=== PATIENT | female | born 1960 | race Caucasian/White ===

== ENCOUNTER 2022-11-17 11:54 | Day surgery (SDC) | payer MEDICARE ==
[~2022-11-17] VITALS: Ht 167.6 cm; Wt 124.7 kg
[2022-11-17] MEDS ORDERED: OZEMPIC1 MG/0.72 SC (12:50)
[2022-11-17] MEDS ORDERED: METO25ER PO (12:51)
[2022-11-17] MEDS ORDERED: EZET10 PO (12:51)
[2022-11-17] MEDS ORDERED: FENO48 PO (12:52)
[2022-11-17] MEDS ORDERED: MONT10T PO (12:53)
[2022-11-17] MEDS ORDERED: PREG100 PO (12:58)
[2022-11-17] MEDS ORDERED: DULO30 PO (12:59)
--- NOTE | 2022-11-17 14:18 | NUR ---
11/17/22 1418 Alexandra Mattson BARRY WAS INSERTED AT 1350 AND REMOVED AT 1412 WITH 50 CC YELLOW URINE IN BARRY BAG
--- NOTE | 2022-11-17 14:32 | NUR ---
11/17/22 1432 FLETCHER FUENTES PT QUESTIONS GETTING TORADOL SHE STATES SHE HAS ANAPHLAX FOR IBUPROFEN. PT STATES THROAT SCRATCHY AND EYES ITCHY. "FELT WHEEZY". PT O2 LEVEL DROPPED TO 91% ON RA. STARTED 10L O2 VIA FACE TENT. CURRENTLY O2 SAT IS 100%. PT NOW COUGHING. PT CARMELO WAS NOTIFIED AND CAME TO SEE PT. WE DISCUSSED OUR CONCERN. HE TOLD THAT PT THAT THIS WOULD PASS AND SHE WILL BE OKAY. HE DID NOT WANT TO GIVE BENEDRYL NOR AN UPDRAFT. PT HAD REQUESTED SOLUMEDROL.
--- NOTE | 2022-11-17 15:11 | NUR ---
11/17/22 1511 FLETCHER FUENTES PT STATES PAIN IN LOWER ABD AND THROAT ARE BOTH 8/10. PT IN RECLINER. PT STATES THAT SHE STILL FEELS SOB. SHE STATES SHE WILL JUST GO HOME AND USE HER CPAP.
[2022-11-17 15:18] VITALS: BP 142/83
== END 2022-11-17 15:32 | disposition home or self-care (01) ==
LOC: ORSCSDS 11:54
PROVIDERS: Obstetrics & Gynecology
PROC: 0UDB8ZX Extraction of Endometrium, Via Natural or Artificial Opening Endoscopic, Diagnostic (ICD-10-PCS; principal; 2022-11-17 13:15)
DX: N95.0 Postmenopausal bleeding (principal); N84.0 Polyp of corpus uteri; E11.9 Type 2 diabetes mellitus without complications; E66.01 Morbid (severe) obesity due to excess calories; Z68.41 Body mass index [BMI] 40.0-44.9, adult; G47.33 Obstructive sleep apnea (adult) (pediatric); Z79.899 Other long term (current) drug therapy
CPT/HCPCS: 82947; 88305; J0690; J1100; J1885; J2250; J2405; J2704; J3010

== ENCOUNTER → 2023-03-18 | Outpatient (CLI) | payer MEDICARE ==
[~2023-03-18] MED LIST: DULO30 PO; EZET10 PO; FENO48 PO; METO25ER PO; MONT10T PO; OZEMPIC1 MG/0.72 SC; PREG100 PO
[2023-03-18 10:40] LABS: BASOPHILS ABSOLUTE AUTO 0.05 K/mm3 (0.00-0.23); BASOPHILS PERCENT AUTO 1 % (0-2); EOSINOPHILS ABSOLUTE AUTO 0.32 K/mm3 (0.00-0.68); EOSINOPHILS PERCENT AUTO 4 % (0-6); Hematocrit 47.1 % (33.0-51.0); Hemoglobin 15.2 g/dL (11.5-16.0); IMMATURE GRAN ABSOLUTE AUTO 0.03 K/mm3 (0.00-0.10); IMMATURE GRAN PERCENT AUTO 0 % (0-1); LYMPHOCYTES ABSOLUTE AUTO 2.46 K/mm3 (0.84-5.20); LYMPHOCYTES PERCENT AUTO 27 % (21-46); MONOCYTES ABSOLUTE AUTO 0.63 K/mm3 (0.16-1.47); MONOCYTES PERCENT AUTO 7 % (4-13); Mean Corpuscular HGB 28.5 pg (26.0-34.0); Mean Corpuscular HGB Conc 32.3 g/dL (31.5-36.5); Mean Corpuscular Volume 88 fL (80-100); Mean Platelet Volume 9.1 fL (9.1-12.4); NEUTROPHILS ABSOLUTE AUTO 5.51 K/mm3 (1.96-9.15); NEUTROPHILS PERCENT AUTO 61 % (41-73); Platelet Count 373 K/mm3 (150-400); RDW Standard Deviation 44.9 fL (35.1-46.3); Red Blood Cell Count 5.34 M/mm3 (3.80-5.20)
[2023-03-18 10:44] LABS: Albumin, Blood 3.5 g/dL (3.4-5.0); Bilirubin, Total 0.6 mg/dL (0.1-1.0); Bun/Creatinine Ratio 19.8 (12.0-20.0); Calcium, Blood 9.1 mg/dL (8.5-10.1); Creatinine, Blood 0.76 mg/dL (0.40-1.00); Globulin, Blood 3.5 g/dL (2.2-4.0); Potassium, Blood 3.7 mmol/L (3.5-5.5)
== END | disposition home or self-care (01) ==
LOC: LAB SHORT 09:06 → LAB 09:06
PROVIDERS: Nurse Practitioner Family
DX: E11.42 Type 2 diabetes mellitus with diabetic polyneuropathy (principal); I10 Essential (primary) hypertension
CPT/HCPCS: 80053; 83036; 85025

== ENCOUNTER → 2023-12-29 | Outpatient (CLI) | payer MEDICARE ==
[2023-12-29 11:22] LABS: BASOPHILS ABSOLUTE AUTO 0.08 K/mm3 (0.00-0.23); BASOPHILS PERCENT AUTO 1 % (0-2); EOSINOPHILS ABSOLUTE AUTO 0.48 K/mm3 (0.00-0.68); EOSINOPHILS PERCENT AUTO 6 % (0-6); Hematocrit 44.9 % (33.0-51.0); Hemoglobin 14.7 g/dL (11.5-16.0); IMMATURE GRAN ABSOLUTE AUTO 0.04 K/mm3 (0.00-0.10); IMMATURE GRAN PERCENT AUTO 1 % (0-1); LYMPHOCYTES PERCENT AUTO 26 % (21-46); MONOCYTES ABSOLUTE AUTO 0.53 K/mm3 (0.16-1.47); MONOCYTES PERCENT AUTO 7 % (4-13); Mean Corpuscular HGB 28.2 pg (26.0-34.0); Mean Corpuscular HGB Conc 32.7 g/dL (31.5-36.5); Mean Corpuscular Volume 86 fL (80-100); Mean Platelet Volume 9.2 fL (9.1-12.4); NEUTROPHILS ABSOLUTE AUTO 4.65 K/mm3 (1.96-9.15); NEUTROPHILS PERCENT AUTO 60 % (41-73); Platelet Count 379 K/mm3 (150-400); RDW Coefficient Variation 14.1 % (11.7-14.2); Red Blood Cell Count 5.21 M/mm3 (3.80-5.20); White Blood Cell Count 7.78 K/mm3 (4.00-11.30)
[2023-12-29 13:45] LABS: Alanine Aminotransfer (ALT/SGP 30 U/L (12-78); Albumin, Blood 3.6 g/dL (3.4-5.0); Albumin/Globulin Ratio 1.1 (0.8-1.8); Alk Phos 82 U/L (50-136); Anion Gap 11 mmol/L (3-11); Aspartate Aminotrans (AST/SGOT 17 U/L (12-37); Bilirubin, Total 0.6 mg/dL (0.1-1.0); Blood Urea Nitrogen 13 mg/dL (8-24); Bun/Creatinine Ratio 16.2 (12.0-20.0); CO2, Blood 26 mmol/L (21-32); Calcium, Blood 9.3 mg/dL (8.5-10.1); Chloride, Blood 109 mmol/L (98-108); Globulin, Blood 3.3 g/dL (2.2-4.0); Glomerular Filtration Rate 82 (60-); Glucose, Blood 176 mg/dL (70-99); Sodium, Blood 142 mmol/L (136-145); Total Protein, Blood 6.9 g/dL (6.4-8.2)
[2023-12-30 14:15] LABS: Cholesterol 188 mg/dL (50-200); HDL Cholesterol 63 mg/dL (>39); LDL/HDL RATIO 1.6; Low Density Lipoprotein Chol 101 mg/dL (0-110); Triglycerides 121 mg/dL (30-160); Very Low Density Lipoprot Chol 24 mg/dL (6-32)
== END | disposition home or self-care (01) ==
LOC: LAB 08:34 → LAB SHORT 08:34
PROVIDERS: Nurse Practitioner Family
DX: H81.4 Vertigo of central origin (principal); E78.5 Hyperlipidemia, unspecified
CPT/HCPCS: 80053; 80061; 85025

== ENCOUNTER → 2024-12-23 | Outpatient (CLI) | payer MEDICARE ==
[2024-12-24 00:03] LABS: Microalbumin, Urine Quant. 9.31 mg/L (0.000-20.000)
== END ==
LOC: LAB SHORT 11:50 → LAB 11:50
PROVIDERS: Nurse Practitioner Family
DX: E11.42 Type 2 diabetes mellitus with diabetic polyneuropathy (principal)
CPT/HCPCS: 82043

== ENCOUNTER → 2025-02-16 | Outpatient (CLI) | payer MEDICARE ==
[~2025-02-16] MED LIST changes: +ALBU90OI INH; +Adipex-P37.5 M1 PO; +GABAPENTIN ER600 MG PO; +MOUNJARO2.5 MG/0.5 SC; -OZEMPIC1 MG/0.72 SC
[2025-02-16 16:28] LABS: BASOPHILS ABSOLUTE AUTO 0.07 K/mm3 (0.00-0.23); BASOPHILS PERCENT AUTO 1 % (0-2); EOSINOPHILS ABSOLUTE AUTO 0.48 K/mm3 (0.00-0.68); EOSINOPHILS PERCENT AUTO 6 % (0-6); Hematocrit 44.4 % (33.0-51.0); Hemoglobin 14.3 g/dL (11.5-16.0); IMMATURE GRAN ABSOLUTE AUTO 0.02 K/mm3 (0.00-0.10); IMMATURE GRAN PERCENT AUTO 0 % (0-1); LYMPHOCYTES ABSOLUTE AUTO 1.94 K/mm3 (0.84-5.20); LYMPHOCYTES PERCENT AUTO 25 % (21-46); MONOCYTES ABSOLUTE AUTO 0.74 K/mm3 (0.16-1.47); MONOCYTES PERCENT AUTO 10 % (4-13); Mean Corpuscular HGB Conc 32.2 g/dL (31.5-36.5); Mean Corpuscular Volume 88 fL (80-100); NEUTROPHILS ABSOLUTE AUTO 4.40 K/mm3 (1.96-9.15); NEUTROPHILS PERCENT AUTO 57 % (41-73); NRBC ABSOLUTE 0.00 K/mm3 (0.00-0.02); NRBC Auto 0.0 /100 WBC (0.0-0.2); Platelet Count 346 K/mm3 (150-400); RDW Coefficient Variation 14.1 % (11.7-14.2); RDW Standard Deviation 45.3 fL (35.1-46.3)
[2025-02-16 17:29] LABS: Alanine Aminotransfer (ALT/SGP 34 U/L (12-78); Albumin, Blood 3.5 g/dL (3.4-5.0); Albumin/Globulin Ratio 1.1 (0.8-1.8); Anion Gap 8 mmol/L (3-11); Aspartate Aminotrans (AST/SGOT 19 U/L (12-37); Bilirubin, Total 0.5 mg/dL (0.1-1.0); Blood Urea Nitrogen 11 mg/dL (8-24); CHOL/HDL RATIO 3.4; CO2, Blood 26 mmol/L (21-32); Calcium, Blood 9.0 mg/dL (8.5-10.1); Chloride, Blood 109 mmol/L (98-108); Cholesterol 158 mg/dL (50-200); Creatinine, Blood 0.68 mg/dL (0.40-1.00); Globulin, Blood 3.2 g/dL (2.2-4.0); Glucose, Blood 174 mg/dL (70-99); HDL Cholesterol 47 mg/dL (>39); LDL/HDL RATIO 1.6; Low Density Lipoprotein Chol 74 mg/dL (0-110); Potassium, Blood 3.8 mmol/L (3.5-5.5); Sodium, Blood 139 mmol/L (136-145); Thyroid Stimulating Hormone 0.866 uIU/mL (0.360-4.800); Total Protein, Blood 6.7 g/dL (6.4-8.2); Triglycerides 187 mg/dL (30-160); Very Low Density Lipoprot Chol 37 mg/dL (6-32)
== END ==
LOC: LAB 14:49 → LAB SHORT 14:49
PROVIDERS: Nurse Practitioner Family
DX: E78.5 Hyperlipidemia, unspecified (principal); R00.2 Palpitations; R53.81 Other malaise; R55 Syncope and collapse
CPT/HCPCS: 80053; 80061; 84443; 85025; 87077; 87086; 87186